=== PATIENT | female | born 1990 | race Caucasian/White ===

== ENCOUNTER 2016-08-01 20:58 | Emergency (ER) | payer SELFPAY ==
[~2016-08-01] VITALS: Ht 170.2 cm; Wt 66.0 kg
[2016-08-01 20:59] VITALS: BP 146/108; PULSE 104; RESP 18; TEMP 99.2; O2SAT 98
--- NOTE | 2016-08-01 22:38 | PD ---
HPI Chief Complaint: [employer] Problem/Complaint Time Seen by Provider: 22:37 Travel History International Travel<30 days: No Contact w/Intl Traveler<30days: No Traveled to known affect area: No History of Present Illness HPI 25-year-old female came to the emergency room with history of right flank pain. Patient came in saying that she thinks she has a kidney infection. Sent has had infections in the past and says this feels same. This has been going on for past 4-5 days and progressively worsening. Denies any fever or chills. Denied any nausea or vomiting. Patient says she's also had her period continuously for past 2 weeks. Vital signs were relatively stable. The pain from the flank radiates a little to the anterior aspect in the right lower quadrant. Patient has had tubal ligation and bladder lift surgery in the past. Denies of any vaginal discharge except for the bleed. PFSH Past Medical History Narrative Medical List of her past medical, surgical, social and family history was reviewed from the nursing note. Medical History: Denies Significant Hx Tetanus Vaccination: > 5 Years Influenza Vaccination: No ?: Not LMP: TUBAL : 1 Para: 0 Miscarriage: 0 : 0 Tubal Ligation: Yes (2016) Past Surgical History Abdominal Surgery: Yes (PELVIC HERNIA) Gynecologic Surgery: Yes (LEEP) Social History Alcohol Use: Yes (RARE) Tobacco Use: Yes (1 PPD) Substance Use: Yes (WEED) Allergies-Medications (Allergen,Severity, Reaction): Coded Allergies: Penicillin (Verified Allergy, Severe, Swelling, 08/01/16) Comments List of her allergies reviewed from the nursing note. Reported Meds & Prescriptions Reported Meds & Active Scripts Active Macrobid (Nitrofurantoin Monoh/Nitrofur Macro) 100 Mg Cap 100 Mg PO BID 10 Days Narrative Medication List of home medications reviewed from the nursing note. Review of Systems Except as stated in HPI: all other systems reviewed are Neg Physical Exam Narrative GENERAL: Awake, alert, moderate distress SKIN: Focused skin assessment warm/dry. HEAD: Atraumatic. Normocephalic. EYES: Pupils equal and round. No scleral icterus. No injection or drainage. ENT: No nasal bleeding or discharge. Dry mucous membrane NECK: Trachea midline. No JVD. CARDIOVASCULAR: Regular rate and rhythm. No murmur appreciated. RESPIRATORY: No accessory muscle use. Clear to auscultation. Breath sounds equal bilaterally. GASTROINTESTINAL: Abdomen soft, mild right upper quadrant tenderness on deep palpation, nondistended. Hepatic and splenic margins not palpable. MUSCULOSKELETAL: No obvious deformities. No clubbing. No cyanosis. No edema. NEUROLOGICAL: Awake and alert. No obvious cranial nerve deficits. Motor grossly within normal limits. Normal speech. PSYCHIATRIC: Appropriate mood and affect; insight and judgment normal. Data Data Last Documented VS Vital Signs Date Time Temp Pulse Resp B/P Pulse Ox O2 Delivery O2 Flow Rate FiO2 08/01/16 20:59 99.2 104 18 146/108 98 Room Air Orders Complete Blood Count With Diff (08/01/16 22:40) Comprehensive Metabolic Panel (08/01/16 22:40) Lipase (08/01/16 22:40) Urinalysis - C+S If Indicated (08/01/16 22:40) Iv Access Insert/Monitor (08/01/16 22:40) Ecg Monitoring (08/01/16 22:40) Oximetry (08/01/16 22:40) Sodium Chlor 0.9% 1000 Ml Inj (Ns 1000 M (08/01/16 22:40) Sodium Chloride 0.9% Flush (Ns Flush) (08/01/16 22:45) Ketorolac Inj (Toradol Inj) (08/01/16 22:45) Ed Urine Pregnancytest Poc (08/01/16 22:40) Ed Poc Ultrasound (08/01/16 22:40) Urine Culture (08/01/16 22:45) Ceftriaxone Inj (Rocephin Inj) (08/01/16 23:45) Blood Culture (08/01/16 23:35) Labs Laboratory Tests Test 08/01/16 22:45 Sodium Level 138 MEQ/L Potassium Level 4.0 MEQ/L Chloride Level 103 MEQ/L Carbon Dioxide Level 27.7 MEQ/L Anion Gap 7 MEQ/L Blood Urea Nitrogen 8 MG/DL Creatinine 0.89 MG/DL Estimat Glomerular Filtration 76 ML/MIN Rate Random Glucose 98 MG/DL Calcium Level 9.2 MG/DL Total Bilirubin 0.4 MG/DL Aspartate Amino Transf 16 U/L (AST/SGOT) Alanine Aminotransferase 29 U/L (ALT/SGPT) Alkaline Phosphatase 53 U/L Total Protein 7.4 GM/DL Albumin 3.5 GM/DL Lipase 116 U/L White Blood Count 13.2 TH/MM3 Red Blood Count 4.27 MIL/MM3 Hemoglobin 13.0 GM/DL Hematocrit 38.1 % Mean Corpuscular Volume 89.1 FL Mean Corpuscular Hemoglobin 30.4 PG Mean Corpuscular Hemoglobin 34.1 % Concent Red Cell Distribution Width 13.1 % Platelet Count 318 TH/MM3 Mean Platelet Volume 8.5 FL Neutrophils (%) (Auto) 69.3 % Lymphocytes (%) (Auto) 20.5 % Monocytes (%) (Auto) 9.2 % Eosinophils (%) (Auto) 0.6 % Basophils (%) (Auto) 0.4 % Neutrophils # (Auto) 9.2 TH/MM3 Lymphocytes # (Auto) 2.7 TH/MM3 Monocytes # (Auto) 1.2 TH/MM3 Eosinophils # (Auto) 0.1 TH/MM3 Basophils # (Auto) 0.1 TH/MM3 CBC Comment DIFF FINAL Differential Comment Urine Color YELLOW Urine Turbidity HAZY Urine pH 7.5 Urine Specific [place] 1.012 Urine Protein 30 mg/dL Urine Glucose (UA) NEG mg/dL Urine Ketones NEG mg/dL Urine Occult Blood MOD Urine Nitrite NEG Urine Bilirubin NEG Urine Urobilinogen LESS THAN 2.0 MG/DL Urine Leukocyte Esterase LARGE Urine RBC 6 /hpf Urine WBC 140 /hpf Urine Squamous Epithelial 6 /hpf Cells Urine Mucus FEW /lpf Microscopic Urinalysis Comment CULTURE INDICATED MDM Medical Decision Making Medical Screen Exam Complete: Yes Emergency Medical Condition: Yes Medical Record Reviewed: Yes Differential Diagnosis Pyelonephritis, acute cholecystitis, acute pancreatitis Narrative Course 12:14 AM blood test results are back. Patient has slight leukocytosis. UA is highly suggestive of UTI. Liver functions were within normal limit. Bedside sonogram done by me was negative for cholelithiasis. Patient was given a dose of Rocephin and 1 L of IV fluid bolus. I'm comfortable discharging the patient home at this point on prescription antibiotic. Patient is comfortable with that plan as well. Procedures Procedure Narrative Emergency department right upper quadrant ultrasound was performed with patient consent. Curvilinear probe was used in the transverse and sagittal views within the right upper quadrant revealing gallbladder without obvious wall thickening, cholecystic fluid, or cholelithiasis. EKG Prior to Arrival: No Diagnosis Primary Impression: Pyelonephritis Referrals: Primary Care Physician 2 days Additional Instructions: Please return to the ER if the condition worsens or any other new concerns. Otherwise follow-up with your primary care in couple days. Take the medication if the condition worsens or any other new concerns. Please get the prescription filled and start the medication as per the direction. Med/Other Pt SpecificInfo: Prescription(s) given Scripts Nitrofurantoin Monohydrate Macrocrystals (Macrobid)100 Mg Exy485 Mg PO BID 10 Days Ref 0 Prov:Jonnathan Gipson MD 08/02/16 Disposition: 01 DISCHARGE HOME Condition: Stable Jonnathan Gipson MD Aug 01, 2016 22:37
[2016-08-01] MEDS ORDERED: SODIUM CHLOR 0.9% 1000 ML INJ 1,000 ML IV SCH (22:40)
[2016-08-01] MEDS ORDERED: KETOROLAC TROMETHAMINE 30 MG/ML (IVP) VIAL IVP ONE (22:45)
[2016-08-01] MEDS: SODIUM CHLORIDE 0.9% FLUSH 10 ML FLUSH IV FLUSH PRN ×2 (22:58→23:48)
[2016-08-01 23:13] LABS: AUTOMATED NEUTROPHIL # 9.2 TH/MM3 (1.8-7.7); BASOPHIL # 0.1 TH/MM3 (0-0.2); BASOPHIL % 0.4 % (0.0-2.0); EOSINOPHIL # 0.1 TH/MM3 (0-0.4); EOSINOPHIL % 0.6 % (0.0-4.0); HEMATOCRIT 38.1 % (35.0-46.0); HEMO FLAGS DIFF FINAL; LYMPH % 20.5 % (9.0-44.0); LYMPHOCYTE # 2.7 TH/MM3 (1.0-4.8); MEAN CELL VOLUME 89.1 FL (80.0-100.0); MEAN CORPUSCULAR HEMOGLOBIN 30.4 PG (27.0-34.0); MEAN CORPUSCULAR HGB CONC 34.1 % (32.0-36.0); MONO % 9.2 % (0.0-8.0); NEUT % 69.3 % (16.0-70.0); PLATELET COUNT 318 TH/MM3 (150-450); RED BLOOD COUNT 4.27 MIL/MM3 (4.00-5.30); RED CELL DISTRIBUTION WIDTH 13.1 % (11.6-17.2); WHITE BLOOD COUNT 13.2 TH/MM3 (4.0-11.0)
[2016-08-01 23:19] LABS: ALT (GPT) 29 U/L (10-53); ANION GAP 7 MEQ/L (5-15); AST (GOT) 16 U/L (15-37); BICARBONATE 27.7 MEQ/L (21.0-32.0); BLOOD UREA NITROGEN 8 MG/DL (7-18); CHLORIDE 103 MEQ/L (98-107); GLOMERULAR FILTRATION RATE 76 ML/MIN (>89); SODIUM (NA) 138 MEQ/L (136-145)
[2016-08-01 23:21] LABS: ALKALINE PHOSPHATASE 53 U/L (45-117); TOTAL BILIRUBIN ADULT 0.4 MG/DL (0.2-1.0)
[2016-08-01 23:29] LABS: BLOOD, URINE MOD (NEG); COMMENT (UR) CULTURE INDICATED; CULTURE IF INDICATED CULTURE INDICATED; GLUCOSE,URINE NEG (NEG); KETONE, URINE NEG (NEG); MUCUS URINE FEW /lpf (OCC); NITRITE,URINE NEG (NEG); PH, URINE 7.5 (5.0-8.5); SQUAMOUS EPITHELIAL CELL URINE 6 /hpf (0-5); URINE COLOR YELLOW (YELLW/STRAW)
[2016-08-01] MEDS ORDERED: cefTRIAXone INJ 1,000 MG in SODIUM CHLORIDE 0.9% INJ 100 ML IV ONE (23:45)
[2016-08-02] MEDS ORDERED: MACR100C2 PO (00:10)
== END 2016-08-02 01:00 | disposition home or self-care (01) ==
LOC: NEPE 20:58
DX: N12 Tubulo-interstitial nephritis, not specified as acute or chronic (principal); B96.20 Unspecified Escherichia coli [E. coli] as the cause of diseases classified elsewhere; D72.829 Elevated white blood cell count, unspecified; N93.9 Abnormal uterine and vaginal bleeding, unspecified; F17.200 Nicotine dependence, unspecified, uncomplicated
CPT/HCPCS: 80053; 81001; 83690; 84703; 85025; 87040; 87077; 87086; 87186; 96361; 96365; 96375; 99284; J0696; J1885; J7030